=== PATIENT | male | born 1970 | race Caucasian/White ===

== ENCOUNTER 2016-07-15 05:35 | Inpatient (IN) | payer OTHER ==
--- NOTE | 2016-06-25 09:14 | PAT Medication Instructions ---
Service Date Jun 25, 2016. Current Home Medication List Fluoxetine (Prozac), 40 MG PO QAM Meclizine Hcl (Meclizine Hcl), 1 TAB PO TID PRN for RN Multivitamin (Multivitamin), 1 TAB PO QAM Naproxen (Aleve), 880 MG PO PRN Medication Instructions For Your Scheduled Surgery Meclizine Hcl (Meclizine Hcl), 1 TAB PO TID PRN for RN (not taking currently) Naproxen (Aleve), 880 MG PO PRN (check with Dr. Tee's office for instructions ) - Hold the following medications the morning of surgery: Multivitamin (Multivitamin), 1 TAB PO QAM - Take the following medications the morning of surgery with a sip of water: Fluoxetine (Prozac), 40 MG PO QAM If you have any questions please call us at [phone] or [phone] ( [place]) or [phone]
[2016-06-25 10:14] LABS: BASO % 0.2 %; BASO ABS # 0.01 K/uL (0-0.2); COMPLETE YES; EOS % 5.9 %; IG% 0.3 %; LYMPH % 24.6 %; LYMPH ABS # 1.43 K/uL (1.2-3.4); MEAN CELL VOLUME 84.9 fL (80-100); MEAN CORPUSCULAR HEMOGLOBIN 28.8 pg (25-34); MEAN CORPUSCULAR HGB CONC 33.9 g/dl (32-36); MEAN PLATELET VOLUME 10.4 fL (7.4-10.4); PLATELET COUNT 212 K/uL (130-400); RED BLOOD COUNT 4.83 M/uL (4.7-6.1); WHITE BLOOD COUNT 5.81 K/uL (4.8-10.8)
[2016-06-25 10:15] LABS: URINE APPEARANCE CLEAR (CLEAR); URINE BILIRUBIN NEG (NEG); URINE COLOR DK YELLOW; URINE NITRITE NEG (NEG); URINE SPECIFIC GRAVITY 1.034 (1.000-1.030); UROBILINOGEN NEG (NEG)
[2016-06-25 10:29] LABS: MANUAL MICROSCOPIC REQUIRED? NO; REVIEW REQ? NO
[2016-06-25 10:38] LABS: BUN/CREATININE RATIO 31.1 (10-20); CALCIUM 9.2 mg/dl (8.5-10.1); CREATININE 0.71 mg/dl (0.60-1.40); POTASSIUM 4.1 mmol/L (3.5-5.1)
--- NOTE | 2016-07-14 21:14 | HISTORY & PHYSICAL EXAMINATION ---
DATE OF ADMISSION: 07/15/2016 He is being preoped for lumbar spine surgery, posterior lumbar interbody fusion at L4-L5. His major complaint is back and lower extremity difficulty, weakness, inability to stand, walk, ambulate, numbness, tingling and weakness of 6 to 9 months in duration. ALLERGIES: PENICILLIN. MEDICATIONS: Ibuprofen, hydrocodone. HISTORY OF PRESENT ILLNESS: Daniel has a working diagnosis of significant spondylolisthesis grade 2, significant stenosis and instability of the spine. MEDICAL HISTORY: Positive for depression, usual childhood diseases. SURGICAL HISTORY: Two cervical spine surgeries in 2004 and 2009. FAMILY HISTORY: Heart disease. SOCIAL HISTORY: He is , 3 children. Rarely drinks. No tobacco. Active lifestyle. 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 REVIEW OF SYSTEMS: Positive for headaches. Ear, nose and throat negative. Denies chest pain, palpitation. No asthma, wheezing. No nausea, vomiting. No urgency or frequency. Positive for sleep issues. Skin rashes and lesions negative. Numbness, tingling and weakness. He has no diabetes. He has bruisability, or immunodeficiency. PHYSICAL EXAMINATION: VITAL SIGNS: He is 5 feet 7 inches, 195 pounds, blood pressure 130/80, pulse of 80, respiratory rate 16 and temperature 97.4. HEENT: Pupils reactive to light and accommodation. Ear, nose and throat clear. CARDIAC: Normal S1, S2. No S3. LUNGS: Clear to auscultation. No rales, rhonchi or wheezing. ABDOMEN: Soft, nontender, bowel sounds present. MUSCULOSKELETAL: He has decreased range of motion, pain with flexion and extension of his spine. Pain with percussion of spine. He has weakness with dorsiflexion and plantar flexion. NEUROLOGIC: He has slight numbness and tingling as well. He has slight gait abnormality. Images demonstrated spondylolisthesis of the spine L4-L5. IMPRESSION: Spondylolisthesis, lumbar spine. DISPOSITION: Includes decompression, laminectomy and a procedure L4-L5 under general anesthetic at [facility] on 07/15/2016. IMPRESSION: Foot end. MTDD
[2016-07-15] VITALS (9 sets, daily range): BP systolic 91–143; BP diastolic 60–92; PULSE 72–85; TEMP 36.5–37.1; O2SAT 93–98; Ht 170.2 cm; Wt 87.5 kg
[~2016-07-15] VITALS: Ht 170.2 cm; Wt 87.5 kg
[~2016-07-15 05:35] MED LIST: FLUO40CA8 PO; MECL1TAB42 PO; MULT-506 PO; NAPR1TAB9 PO
[2016-07-15] MEDS ORDERED: SODIUM CHLORIDE 0.9% 1000ML 1,000 ML IV SCH ×2 (06:00→10:25)
[2016-07-15] MEDS ORDERED: CLINDAMYCIN 600 MG/54 ML D5W IV SCH (06:00)
[2016-07-15] MEDS ORDERED: SCOPOLAMINE 1.5 MG TDSY TD SCH (06:00)
[2016-07-15] MEDS ORDERED: ROCURONIUM BROMIDE 10 MG/ML 5 ML VIAL ONE ×2 (06:16→08:31)
[2016-07-15] MEDS ORDERED: ONDANSETRON INJ 2 MG/ML 2 ML VIAL ONE (06:16)
[2016-07-15] MEDS ORDERED: LIDOCAINE HCL 2% 2 ML VIAL (20MG/ML) ONE (06:16)
[2016-07-15] MEDS ORDERED: GLYCOPYRROLATE INJ 0.2 MG/ML VIAL ONE (06:16)
[2016-07-15] MEDS ORDERED: MIDAZOLAM HCL 1 MG/ML 2ML VIAL ONE (06:16)
[2016-07-15] MEDS ORDERED: PROPOFOL IV EMULSION 10 MG/ML 20 ML VIAL IV ONE (06:16)
[2016-07-15] MEDS ORDERED: DEXAMETHASONE SOD INJ 4 MG/ML VIAL ONE (06:16)
[2016-07-15] MEDS ORDERED: NEOSTIGMINE METHYLSULFATE 5 MG/5 ML SYR ONE (06:16)
[2016-07-15] MEDS ORDERED: FENTANYL CITRATE INJ 50 MCG/1 ML 2 ML VIAL ONE (06:16)
--- NOTE | 2016-07-15 07:21 | History & Physical Bridge Note ---
H&P Re-Evaluation Bridge Note: I have examined the patient, reviewed the History & Physical and in the interval since the performance of the History & Physical I have noted the following changes of clinical significance: No changes noted
[2016-07-15] MEDS ORDERED: HYDROmorphone INJ 1 MG/ML SYR IV PRN (08:00)
[2016-07-15] MEDS ORDERED: PROMETHAZINE HCL INJ 6.25 MG in SODIUM CHLORIDE 0.9% 50ML 50 ML IV PRN (08:00)
[2016-07-15] MEDS ORDERED: FENTANYL CITRATE INJ 50 MCG/1 ML 2 ML VIAL IV PRN (08:00)
[2016-07-15] MEDS ORDERED: ATROPINE SULFATE 0.1 MG/ML 5ML SYR IV PRN (08:00)
[2016-07-15] MEDS ORDERED: EpHEDrine SULFATE INJ 50 MG/ML AMP IV PRN (08:00)
[2016-07-15] MEDS ORDERED: ONDANSETRON INJ 2 MG/ML 2 ML VIAL IV PRN ×2 (08:00→10:30)
[2016-07-15] MEDS ORDERED: EpHEDrine SULFATE 50MG/5ML SYR ONE (08:16)
[2016-07-15] MEDS ORDERED: VANCOMYCIN HCL 1000MG/20ML VIAL TOP ONE (09:49)
[2016-07-15] MEDS ORDERED: BUPIVACAINE/EPINEPHRINE 0.5% MPF 1:200,000 30 ML VIAL INJ ONE (09:49)
[2016-07-15] MEDS ORDERED: GELATIN SPONGE SZ 100 TOP ONE (09:49)
[2016-07-15] MEDS ORDERED: BACITRACIN 50000 UNIT VIAL IR ONE (09:49)
[2016-07-15] MEDS ORDERED: THROMBIN FOR SOLN 20000 UNIT KIT TOP ONE (09:49)
--- NOTE | 2016-07-15 09:49 | DIAGNOSTIC IMAGING REPORT ---
LUMBAR SPINE, INTRAOPERATIVE FLUOROSCOPY HISTORY: L4-L5 decompression and fusion. FLUOROSCOPY TIME: 5 seconds. FINDINGS: Intraoperative fluoroscopy was provided for the lumbar spine. A single fluoroscopic spot image. Posterior decompression and fusion at L4-L5 with pedicle screws and rods. The hardware appears intact. IMPRESSION: Fluoroscopy provided for a L4-5 posterior decompression and fusion. Electronically signed by: Yoni Biggs M.D. 07/15/2016 9:47 AM
--- NOTE | 2016-07-15 10:29 | [facility] Post Operative Brief Note ---
Immediate Operative Summary Operative Date Jul 15, 2016. Pre-Operative Diagnosis Spondylolisthesis, lumbar spine Post-Operative Diagnosis Spondylolisthesis, lumbar spine Procedure(s) Performed L4-L5 Posterior Lumbar Interbody Fusion Surgeon Dr. Daniel Tee Director Of Reimbursement Surgeon(s) Dale Marks PA-C Estimated Blood Loss 200ML Findings spondy and stenosis Specimens None per surgeon Complication(s) None Disposition Recovery Room / PACU
[2016-07-15] MEDS ORDERED: PROMETHAZINE HCL INJ 12.5 MG in SODIUM CHLORIDE 0.9% 50ML 50 ML IV PRN (10:30)
[2016-07-15] MEDS ORDERED: LORAZEPAM 1 MG TAB PO PRN (10:30)
[2016-07-15] MEDS ORDERED: METOCLOPRAMIDE HCL INJ 5 MG/ML 2 ML VIAL IV PRN (10:30)
[2016-07-15] MEDS ORDERED: MECLIZINE HCL 12.5 MG TAB PO PRN (10:30)
[2016-07-15] MEDS ORDERED: MAGNESIUM HYDROXIDE SUSP 30 ML UDC PO PRN (10:30)
[2016-07-15] MEDS ORDERED: LORAZEPAM INJ 1 MG in SYRINGE 0 ML IV PRN (10:30)
[2016-07-15] MEDS ORDERED: NALOXONE HCL 0.4 MG/1 ML VIAL/CARP IV PRN (10:30)
[2016-07-15] MEDS ORDERED: ACETAMINOPHEN 325 MG TAB PO PRN (10:30)
[2016-07-15] MEDS ORDERED: HYDROmorphone HCL 0.5MG/ML 50 ML CASSETTE ONE (10:34)
--- NOTE | 2016-07-15 11:00 | Anesthesiology Progress Note ---
Anesthesia Post Op Note Date & Time Jul 15, 2016 at 10:59 Vital Signs Pain Intensity: 2 Vital Signs Past 12 Hours Date Time Temp Pulse Resp B/P Pulse Ox O2 Delivery O2 Flow Rate FiO2 07/15/16 10:57 36.5 07/15/16 10:53 119/68 07/15/16 10:51 76 20 07/15/16 10:51 76 20 100 07/15/16 10:48 115/67 07/15/16 10:46 79 22 100 07/15/16 10:46 80 22 07/15/16 10:43 120/62 07/15/16 10:41 86 20 100 07/15/16 10:41 86 20 07/15/16 10:40 Nasal Cannula 3 07/15/16 10:38 125/63 07/15/16 10:36 86 20 100 07/15/16 10:36 86 20 07/15/16 10:33 128/61 07/15/16 10:31 89 07/15/16 10:31 89 16 100 07/15/16 10:28 124/66 07/15/16 10:26 99 07/15/16 10:26 99 119/70 96 07/15/16 10:21 36.3 99 16 119/70 96 Mask 10 07/15/16 05:58 37.1 78 20 143/92 98 Room Air Notes Mental Status: alert / awake / arousable, participated in evaluation Pt Amnestic to Procedure: Yes Nausea / Vomiting: adequately controlled Pain: adequately controlled Airway Patency, RR, SpO2: stable & adequate BP & HR: stable & adequate Hydration State: stable & adequate Anesthetic Complications: no major complications apparent
[2016-07-15] MEDS: HYDROmorphone HCL 0.5MG/ML 50 ML CASSETTE IV PRN ×2 (11:12→18:55)
--- NOTE | 2016-07-15 11:45 | OPERATIVE REPORT ---
DATE OF OPERATION: 07/15/2016 PREOPERATIVE DIAGNOSIS: Spondylolisthesis, lumbar spine, grade 2. POSTOPERATIVE DIAGNOSIS: Same. PROCEDURE: Include a laminectomy 4-5 lumbar spine. Posterior lumbar interbody fusion. Pedicle screw instrumentation and complete discectomy 4-5. SURGEON: Dr. Tee. SHEARING SHED WORKER: Dale Marks PA-C. COMPLICATIONS: Zero. BLOOD LOSS: 200. DESCRIPTION OF PROCEDURE: The patient was taken to the operating room and general intubated anesthetic provided to the patient, placed prone, shaved, scrubbed, prepped and draped sterile. We made a skin incision from 4-5 dissecting the soft tissue. We came right out of the transverse processes. We decompressed the neural elements in great detail, which will be the 4 and 5 nerve roots bilaterally. I was pleased with the decompression. We then instrumented spine safely getting pedicle screws at 4 and 5 bilaterally with the [employer] using anatomic landmarks and C-arm guidance. We then did a complete discectomy left side, right-side, evacuating essentially the entire disc at 4-5. This was replaced by interbody devices, PEEK interbody cages at L4-5. They were 11 mm in height, 10 mm in width, 26 mm in length. They were placed into the vacated discectomy. We locked down the construct, closed in layers bone grafted out over the transverse processes to complete the 360 fusion, 3-0 nylon on the skin, sterile dressing applied. The patient returned to PACU stable. No complications. Sponge and needle count correct. IMPLANTS USED: [employer]. I attest to the content of the Intraoperative Record and any orders documented therein. Any exceptio ns are noted below.
[2016-07-15] MEDS: KETOROLAC TROMETHAMINE 30 MG/ML VIAL IV SCH ×3 (11:54→23:24)
[2016-07-15] MEDS ORDERED: NURSING VERBAL MED ORDER ONE (14:30)
[2016-07-15] MEDS: SODIUM CHLORIDE 0.9% 1000ML 1,000 ML IV SCH (14:36)
[2016-07-15] MEDS: CLINDAMYCIN IV 600 MG in DEXTROSE 5% ADD-VANTAGE 50ML 50 ML IV SCH ×2 (15:31→23:23)
[2016-07-16] MEDS: SODIUM CHLORIDE 0.9% 1000ML 1,000 ML IV SCH (02:59)
[2016-07-16 03:15] VITALS: BP 106/65; PULSE 69; TEMP 36.5; O2SAT 97
[2016-07-16] MEDS: KETOROLAC TROMETHAMINE 30 MG/ML VIAL IV SCH ×2 (05:48→11:16)
[2016-07-16] MEDS ORDERED: DC PCA ONE (06:00)
[2016-07-16] MEDS ORDERED: BISACODYL 10 MG SUPP PR PRN (06:00)
[2016-07-16] MEDS ORDERED: BISACODYL 5 MG TABEC PO PRN (06:00)
[2016-07-16] MEDS ORDERED: HYDROmorphone INJ 1 MG/ML SYR IV PRN (06:00)
[2016-07-16] MEDS ORDERED: OXYCODONE/ACETAMINOPHEN 5-325 TAB PO PRN (06:00)
[2016-07-16] MEDS ORDERED: HYDROmorphone INJ 2 MG/ML SYR/VIAL IV PRN (06:00)
[2016-07-16] MEDS ORDERED: NURSING VERBAL MED ORDER ONE (06:30)
[2016-07-16 07:19] VITALS: BP 98/61; PULSE 61; TEMP 36.5; O2SAT 99
[2016-07-16] MEDS: FLUOXETINE HCL 20 MG CAP PO SCH (08:03)
[2016-07-16] MEDS: POLYETHYLENE (MIRALAX) 17 GM PACK PO SCH (08:03)
[2016-07-16] MEDS: MULTIVITAMIN TAB PO SCH (08:03)
--- NOTE | 2016-07-16 08:06 | Anesthesiology Progress Note ---
Anesthesia Post Op Note Date & Time Jul 16, 2016 at 08:05 Vital Signs Vital Signs Past 12 Hours Date Time Temp Pulse Resp B/P Pulse Ox O2 Delivery O2 Flow Rate FiO2 07/16/16 07:34 Room Air 07/16/16 07:19 36.5 61 16 98/61 99 Room Air 07/16/16 03:15 36.5 69 16 106/65 97 Room Air 07/15/16 23:15 36.5 76 16 103/63 94 Room Air Notes Mental Status: alert / awake / arousable, participated in evaluation Pt Amnestic to Procedure: Yes Nausea / Vomiting: adequately controlled Pain: adequately controlled Airway Patency, RR, SpO2: stable & adequate BP & HR: stable & adequate Hydration State: stable & adequate Anesthetic Complications: no major complications apparent
[2016-07-16] MEDS: OXYCODONE/ACETAMINOPHEN 5-325 TAB PO PRN ×3 (08:08→22:37)
--- NOTE | 2016-07-16 09:11 | PROGRESS NOTE ---
DATE: 07/16/2016 DATE: 07/16/2016. SUBJECTIVE: Still some lower extremity paresthesias. No true pain. Lumbar spine gives him some difficulty as well, but not incapacitating. He is alert, oriented. OBJECTIVE: Vital signs stable, alert, oriented, wound protected. Neurologically intact. ASSESSMENT: Status post lumbar spine decompression and fusion L4-L5. DISPOSITION: Includes instructions, precautions, education, up with therapy today, tentative discharge home tomorrow with home care.
[2016-07-16 10:42] VITALS: BP 130/67; PULSE 67; O2SAT 96
[2016-07-16 10:50] VITALS: BP 93/59; PULSE 62; TEMP 36.7; O2SAT 95
[2016-07-16 15:31] VITALS: BP 116/75; PULSE 58; TEMP 36.7; O2SAT 97
[2016-07-16 23:00] VITALS: BP 106/68; PULSE 75; TEMP 36.9; O2SAT 96
[2016-07-17] MEDS: OXYCODONE/ACETAMINOPHEN 5-325 TAB PO PRN (07:12)
--- NOTE | 2016-07-17 07:37 | DISCHARGE SUMMARY ---
SUBJECTIVE: Minimal complaints of pain. He has some stiffness and soreness. No radicular pain. No fevers, sweats, chills. No confusion. No chest pain, shortness of breath. OBJECTIVE: Hematocrit 41.0. Moves all four extremities. Alert, oriented. No edema. ASSESSMENT: Status post lumbar fusion. DISPOSITION: Discharge home today in improved stable condition. Instructions, precautions, education provided to the patient. Dressings changed about every 24-48 hours. He may shower in 3-5 days. Instructions, precautions given to him here and in the office. He has a prescription at home for medication for pain. He also has a prescription on his chart for a rolling walker only if needed. Followup examination in 10-14 days.
[2016-07-17 07:55] VITALS: BP 120/60; PULSE 68; TEMP 37; O2SAT 96
[2016-07-17] MEDS: MULTIVITAMIN TAB PO SCH (09:24)
[2016-07-17] MEDS: FLUOXETINE HCL 20 MG CAP PO SCH (09:24)
[2016-07-17] MEDS: POLYETHYLENE (MIRALAX) 17 GM PACK PO SCH (09:25)
[2016-07-17 11:33] VITALS: BP 120/60; PULSE 68; TEMP 37; O2SAT 96
== END 2016-07-17 12:35 | disposition home or self-care (01) | DRG 460 ==
LOC: ENRESERVDT → ENRESERVTM → C.ACU 05:35 → C.3E 10:31
PROVIDERS: ADMIT Orthopaedic Surgery Orthopaedic Surgery of the Spine; ATTEND Orthopaedic Surgery Orthopaedic Surgery of the Spine
PROC: 0ST20ZZ Resection of Lumbar Vertebral Disc, Open Approach (ICD-10-PCS; principal; 2016-07-15 07:30)
PROC: 0SG00AJ Fusion of Lumbar Vertebral Joint with Interbody Fusion Device, Posterior Approach, Anterior Column, Open Approach (ICD-10-PCS; principal; 2016-07-15 07:30)
DX: M43.16 Spondylolisthesis, lumbar region (principal); F32.9 Major depressive disorder, single episode, unspecified; G47.30 Sleep apnea, unspecified; R20.0 Anesthesia of skin; M54.2 Cervicalgia; M54.10 Radiculopathy, site unspecified; E66.9 Obesity, unspecified; Z68.30 Body mass index [BMI] 30.0-30.9, adult; Z79.899 Other long term (current) drug therapy; Z79.1 Long term (current) use of non-steroidal anti-inflammatories (NSAID); Z79.891 Long term (current) use of opiate analgesic

== ENCOUNTER → 2016-10-02 | Outpatient (CLI) | payer OTHER ==
--- NOTE | 2016-10-02 12:16 | DIAGNOSTIC IMAGING REPORT ---
RIGHT HIP INJECTION UNDER FLUOROSCOPIC GUIDANCE CLINICAL HISTORY: Degenerative joint disease. Steroid injection. PROCEDURE: The risks, benefits, and alternatives to the procedure were discussed with the patient. Written informed consent was obtained. The patient was placed supine on the fluoroscopy table, and a right hip injection was performed under fluoroscopic guidance. The area was prepped and draped in the usual sterile fashion. The skin and soft tissues anesthetized with local 1% lidocaine. The right hip joint was accessed utilizing a 22-gauge needle, and intra-articular positioning was confirmed by injecting a small volume of Optiray 300. The prescribed dosage of 2 cc of betamethasone and 8 cc of 0.5% bupivacaine was then injected into the joint space. The procedure was well tolerated and without immediate complication. The patient left the department in satisfactory condition. FLUOROSCOPY TIME: 18 seconds. IMPRESSION: Unremarkable steroid injection of the right hip under fluoroscopic guidance. Electronically signed by: Manuel Rachel M.D. 10/02/2016 12:14 PM Dictated Date/Time: 10/02/2016 12:12 PM
== END | disposition home or self-care (01) ==
LOC: C.RADBC 10:43
PROVIDERS: ATTEND Orthopaedic Surgery
DX: M17.11 Unilateral primary osteoarthritis, right knee (principal)

== ENCOUNTER → 2017-03-14 | Outpatient (CLI) | payer OTHER ==
--- NOTE | 2017-03-14 14:38 | DIAGNOSTIC IMAGING REPORT ---
RIGHT INJ MAJOR JNT SHLDR,HIP,KNEE CLINICAL HISTORY: 47 years-old Male presenting with RT HIP DJD Right. COMPARISON: 10/02/2016. PROCEDURE: The risks, benefits, and alternatives to the procedure were discussed with the patient. Written informed consent was obtained. The patient was placed supine on the fluoroscopy table, and a right hip injection was performed under fluoroscopic guidance. The area was prepped and draped in the usual sterile fashion. The skin and soft tissues anesthetized with local 1% lidocaine. The right hip joint was accessed utilizing a 22-gauge needle, and 1 cc of Optiray 300 was injected to confirm intra-articular location. Subsequently, a 10 mL mixture of 2 mL of betamethasone and 8 mL of 0.5% bupivacaine was injected into the joint space under fluoroscopic guidance. The procedure was well tolerated and without immediate complication. Fluoroscopy dosage (mGy): Not available. Fluoroscopy time: 14 seconds. Number of fluoroscopic spot images: 0. IMPRESSION: Successful injection of the right hip under fluoroscopic guidance. Electronically signed by: Skyler Sewell M.D. 03/14/2017 2:36 PM Dictated Date/Time: 03/14/2017 2:34 PM
== END | disposition home or self-care (01) ==
PROVIDERS: ATTEND Orthopaedic Surgery
DX: M16.11 Unilateral primary osteoarthritis, right hip (principal)

== ENCOUNTER 2017-08-12 04:58 | Inpatient (IN) | payer OTHER ==
[2017-07-28 08:08] VITALS: BMI 31.0
--- NOTE | 2017-07-28 08:41 | PAT Medication Instructions ---
Service Date Jul 28, 2017. Current Home Medication List Acetaminophen (Apap), 1 TAB PO QD PRN for Pain Fluoxetine (Prozac), 40 MG PO QAM Meclizine Hcl (Meclizine Hcl), 1 TAB PO TID PRN for RN Multivitamin (Multivitamin), 1 TAB PO QAM Medication Instructions For Your Scheduled Surgery - Hold the following medications the morning of surgery: Multivitamin (Multivitamin), 1 TAB PO QAM - Take the following medications the morning of surgery with a sip of water: Fluoxetine (Prozac), 40 MG PO QAM Meclizine Hcl (Meclizine Hcl), 1 TAB PO TID PRN for RN (if needed) Acetaminophen (Apap), 1 TAB PO QD PRN for Pain (okay to take up to 4 hours prior to surgery if needed) - Take the following medications as scheduled the night before surgery: Meclizine Hcl (Meclizine Hcl), 1 TAB PO TID PRN for RN (if needed) Acetaminophen (Apap), 1 TAB PO QD PRN for Pain (if needed) If you have any questions please call us at [phone] or [phone] or [phone]
--- NOTE | 2017-07-28 09:30 | DIAGNOSTIC IMAGING REPORT ---
CHEST 2 VIEWS ROUTINE HISTORY: 47 years-old Male PAT preoperative exam. No acute chest complaints COMPARISON: None available TECHNIQUE: PA and lateral views of the chest FINDINGS: There is an indeterminate square opaque structure measuring up to 1.4 cm overlying C7 which may reflect orthopedic hardware. Cardiomediastinal and hilar silhouettes are within normal limits. No pneumothorax, pleural effusion or overt pulmonary edema. Linear subsegmental right perihilar opacity is noted. The bones of the chest appear grossly intact. Multilevel endplate spurring of the spine. Moderate degenerative changes of the left AC joint. IMPRESSION: Linear subsegmental right perihilar opacity suggests area of scarring or atelectasis. The chest is otherwise clear. The above report was generated using voice recognition software. It may contain grammatical, syntax or spelling errors. Electronically signed by: Kody Boston M.D. 07/28/2017 9:29 AM Dictated Date/Time: 07/28/2017 9:26 AM
[2017-07-28 09:46] LABS: BASO % 0.1 %; BASO ABS # 0.01 K/uL (0-0.2); EOS ABS # 0.27 K/uL (0-0.5); HEMATOCRIT 45.2 % (42-52); HEMOGLOBIN 15.2 g/dL (14.0-18.0); IG# 0.05 K/uL (0.00-0.02); LYMPH % 22.1 %; MEAN CELL VOLUME 85.4 fL (80-100); MEAN CORPUSCULAR HEMOGLOBIN 28.7 pg (25-34); MEAN CORPUSCULAR HGB CONC 33.6 g/dl (32-36); MEAN PLATELET VOLUME 10.1 fL (7.4-10.4); MONO % 13.2 %; NEUT % 59.9 %; NEUT ABS # 4.07 K/uL (1.4-6.5); PLATELET COUNT 218 K/uL (130-400); RED CELL DISTRIBUTION WIDTH CV 14.5 % (11.5-14.5); RED CELL DISTRIBUTION WIDTH SD 45.5 fL (36.4-46.3)
[2017-07-28 09:56] LABS: PTT PATIENT 26.7 SECONDS (21.0-31.0)
[2017-07-28 09:59] LABS: CREATININE 0.85 mg/dl (0.60-1.40)
--- NOTE | 2017-08-09 11:06 | HISTORY & PHYSICAL EXAMINATION ---
DATE OF ADMISSION: 08/12/2017 CHIEF COMPLAINT: Right hip pain. 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 Lee for a surgical treatment of his right hip. He has got a 3-year history of increasing right hip pain and discomfort. He describes it has gotten worse over time. He is being treated with oral medicines as well as injections. He had 2 intraarticular hip joint injection. The first one helped for about 3 months and last one helped much shorter. He describes groin pain and thigh pain. He limps the day goes on. It has become more debilitating. He has difficulty putting his shoes and socks on. He would like to have his right hip replaced. PAST MEDICAL HISTORY: Significant for, 1. Sleep apnea. 2. Arm numbness from some neck cervical spondylosis and 2 fusions. 3. Lumbar spine disease. PAST SURGICAL HISTORY: 1. Include cervical fusion x2 one in 2004 and one in 2009 done in [place]. 2. L4-L5 back surgery done by Dr. Tee in July 2016. ALLERGIES: PENICILLIN. REACTIONS UNKNOWN. CURRENT MEDICINES: Include, 1. Fluoxetine 40 mg a day. 2. Meclizine 20 mg p.r.n. for vertigo. SOCIAL HISTORY: A 47-year-old male. 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 Fairly active. REVIEW OF SYSTEMS: Negative for diabetes, heart disease, or blood clots. REVIEW OF SYSTEMS: Negative for diabetes, neurologic problems, vascular problems, or bleeding disorders. Denies any chest pain. No shortness of breath. No history of DVT or PE. PHYSICAL EXAMINATION: GENERAL: Physical examination reveals a healthy, pleasant, middle-aged male. He looks to be in good health. HEENT: Benign. NECK: Supple. No lymphadenopathy. LUNGS: Clear to auscultation. HEART: Regular rate and rhythm. ABDOMEN: Soft, nontender, and nondistended. EXTREMITIES: Grossly neurovascularly intact except as follows. Examination of the right hip reveals the patient walks with a bit of an antalgic gait. He is about 0.5 cm short on the right side compared to left. He has got very stiff hip with internal rotation to neutral at best. External rotation 20 degrees. He has got pain with internal rotation that recreates his pain. No knee effusion. X-RAYS: X-rays of the right hip were reviewed. It shows advanced right hip DJD. He has got complete loss of his joint space. He has got osteophytes around the femoral head and acetabulum. ASSESSMENT: A 47-year-old male with a history of multiple spine surgeries in the past with advanced right hip degenerative joint disease. He has failed conservative treatment. Undoubtedly, some of his pain is coming from his back, but I think that the significant is coming from his hip. He has failed conservative treatment and would like to have his right hip replaced. PLAN: We will take him to the operating room and do a right total hip replacement. The risks and benefits of this procedure were explained to the patient including, but not limited to DVT, PE, , infection, neurological injury, vascular injury, bleeding problem, pain, limited range of motion, stiffness, failure to relieve his symptoms, incomplete relief of symptoms, need for further surgery in the future, fracture, leg length inequality, nerve palsy, persistent pain, etc. The patient understands and desires to proceed. Informed consent was obtained. I did tell him that it is going to fix his underlying back issues and he is aware that. As far as his discharge planing, he is planning to be discharged to home with his family's assistance.
[~2017-08-12] VITALS: Ht 170.2 cm; Wt 90.0 kg
[2017-08-12] VITALS (8 sets, daily range): BP systolic 99–125; BP diastolic 60–78; PULSE 60–87; TEMP 36.5–37.2; O2SAT 91–100; Ht 170.2 cm; Wt 90.0 kg
[~2017-08-12 04:58] MED LIST changes: +ACET325T82 PO; +BUPR150T6 PO; -NAPR1TAB9 PO
[2017-08-12] MEDS ORDERED: ACETAMINOPHEN 500 MG TAB PO SCH (06:00)
[2017-08-12] MEDS ORDERED: METOCLOPRAMIDE HCL 10 MG TAB PO SCH (06:00)
[2017-08-12] MEDS ORDERED: TRANEXAMIC ACID INJ 1,000 MG in SYRINGE 0 ML IV SCH (06:00)
[2017-08-12] MEDS ORDERED: SCOPOLAMINE 1.5 MG TDSY TD SCH (06:00)
[2017-08-12] MEDS ORDERED: FAMOTIDINE 20 MG TAB PO SCH (06:00)
[2017-08-12] MEDS ORDERED: CEFAZOLIN 2000MG IV PUSH 10 ML IV SCH (06:00)
[2017-08-12] MEDS ORDERED: GABAPENTIN 300 MG CAP PO SCH (06:00)
[2017-08-12] MEDS ORDERED: LACTATED RINGER'S 1000ML IV SCH (06:15)
[2017-08-12] MEDS ORDERED: LACTATED RINGER'S 1000ML 500 ML IV SCH (06:15)
[2017-08-12] MEDS ORDERED: LACTATED RINGER'S 1000ML 1,000 ML IV SCH (06:15)
[2017-08-12] MEDS ORDERED: BACITRACIN 50000 UNIT VIAL ONE (06:25)
[2017-08-12] MEDS ORDERED: BUPIVACAINE/EPINEPHRINE 0.5% MPF 1:200,000 30 ML VIAL ONE (06:25)
[2017-08-12] MEDS ORDERED: BUPIVACAINE 0.5 % 5 MG/1 ML PF 10ML VIAL ONE (06:26)
[2017-08-12] MEDS ORDERED: MIDAZOLAM HCL 1 MG/ML 2ML VIAL ONE (06:47)
[2017-08-12] MEDS ORDERED: KETAMINE HCL INJ 50 MG/ML 10 ML VIAL ONE (07:18)
[2017-08-12] MEDS ORDERED: DiphenhydrAMINE HCL 50 MG/ML VIAL ONE (07:31)
[2017-08-12] MEDS ORDERED: LIDOCAINE HCL 2% 2 ML VIAL (20MG/ML) ONE (07:31)
[2017-08-12] MEDS ORDERED: PROPOFOL IV EMULSION 10 MG/ML 20 ML VIAL IV ONE ×2 (07:31→07:50)
[2017-08-12] MEDS ORDERED: SODIUM CHLORIDE 0.9% INJ 10 ML VIAL ONE (07:31)
[2017-08-12] MEDS ORDERED: EpHEDrine SULFATE 50MG/5ML SYR ONE (07:43)
[2017-08-12] MEDS ORDERED: PHENYLEPHRINE 100MCG/ML 5ML SYR ONE (07:43)
[2017-08-12] MEDS ORDERED: PHENYLEPHRINE HCL INJ 10 MG/ML VIAL ONE (07:50)
[2017-08-12] MEDS ORDERED: ONDANSETRON INJ 2 MG/ML 2 ML VIAL IV PRN ×3 (08:00→08:45)
[2017-08-12] MEDS ORDERED: PHENYLEPHRINE 100MCG/ML 5ML SYR IV PRN ×2 (08:00)
[2017-08-12] MEDS ORDERED: ATROPINE SULFATE 0.1 MG/ML 5ML SYR IV PRN ×2 (08:00)
[2017-08-12] MEDS ORDERED: EpHEDrine SULFATE INJ 50 MG/ML AMP IV PRN ×2 (08:00)
[2017-08-12] MEDS ORDERED: HYDROmorphone INJ 2 MG/ML SYR/VIAL IV PRN ×2 (08:00)
--- NOTE | 2017-08-12 08:35 | [facility] Post Operative Brief Note ---
Immediate Operative Summary Operative Date Aug 12, 2017. Pre-Operative Diagnosis Right Hip Degenerative Joint Disease Post-Operative Diagnosis Same as preop Procedure(s) Performed Right Total Hip Arthroplasty Uncemented Surgeon Dr. Vasquez [employer] Coordinator Surgeon(s) Doroteo Avlaos PA-C Estimated Blood Loss 300 ml Findings Consistent with Post-Op Diagnosis Fluids (cc crystalloids) 2000 cc Specimens A. Right Femoral Head Drains None Anesthesia Type Spinal MAC Complication(s) none Disposition Accompanied Pt To Recover: yes Disposition: Recovery Room / PACU
[2017-08-12] MEDS ORDERED: CEFAZOLIN IV 2,000 MG in DEXTROSE 5% 50ML 50 ML IV SCH (08:45)
[2017-08-12] MEDS ORDERED: BISACODYL 10 MG SUPP PR PRN (08:45)
[2017-08-12] MEDS ORDERED: SILVER SULFADIAZINE 1% CR 50 GM JAR EXT PRN (08:45)
[2017-08-12] MEDS ORDERED: MECLIZINE HCL 12.5 MG TAB PO PRN (08:45)
[2017-08-12] MEDS ORDERED: METOCLOPRAMIDE HCL INJ 5 MG/ML 2 ML VIAL IV PRN (08:45)
[2017-08-12] MEDS ORDERED: ZOLPIDEM TARTRATE 5 MG TAB PO PRN (08:45)
[2017-08-12] MEDS ORDERED: TAMSULOSIN HCL 0.4 MG CAP PO PRN (08:45)
[2017-08-12] MEDS ORDERED: ALUMINUM/MAGNESIUM/SIMETH (MAALOX MAX) 30 ML UDC PO PRN (08:45)
[2017-08-12] MEDS ORDERED: DiphenhydrAMINE HCL 50 MG/ML VIAL IV PRN (08:45)
[2017-08-12] MEDS ORDERED: MAGNESIUM HYDROXIDE SUSP 30 ML UDC PO PRN (08:45)
[2017-08-12] MEDS ORDERED: MoRPHine SULFATE 2 MG/ML CARP IV PRN (08:45)
[2017-08-12] MEDS ORDERED: OXYCODONE HCL IR 5 MG TAB (IMMEDIATE RELEASE) PO PRN (08:45)
[2017-08-12] MEDS: TAPENTADOL ER 50 MG TABCR PO SCH ×2 (09:00→20:54)
[2017-08-12] MEDS: DOCUSATE SODIUM 100 MG CAP PO SCH ×2 (09:00→20:54)
[2017-08-12] MEDS: MULTIVITAMIN TAB PO SCH (09:00)
[2017-08-12] MEDS ORDERED: MULTIVITAMIN TAB PO SCH (09:00)
--- NOTE | 2017-08-12 09:16 | DIAGNOSTIC IMAGING REPORT ---
R PELVIS/UNILATERAL HIP 1 VIEW CLINICAL HISTORY: Right hip degenerative arthritis. COMPARISON: Right hip radiographs January 07, 2018. FINDINGS: Alignment of the total right hip arthroplasty is anatomic. There is no periprosthetic fracture or unexpected radiopaque foreign body. 2 [address]ab[address] screws are in place. There are skin fei. IMPRESSION: Expected findings following total right hip arthroplasty. Electronically signed by: Chepe Rodriguez M.D. 08/12/2017 9:15 AM Dictated Date/Time: 08/12/2017 9:14 AM
--- NOTE | 2017-08-12 09:46 | OPERATIVE REPORT ---
DATE OF OPERATION: 08/12/2017 SURGEON: Hao Vasquez MD. COMPLIANCE ADVISOR: SABRA Julian. PREOPERATIVE DIAGNOSIS: Right hip degenerative joint disease. POSTOPERATIVE DIAGNOSIS: Same. PROCEDURE PERFORMED: Right ceramic on highly cross-linked polyethylene uncemented total hip arthroplasty. COMPLICATIONS: None. ESTIMATED BLOOD LOSS: 300 mL FLUID REPLACEMENT: 2000 mL crystalloid fluid replacement. ANESTHESIA: Spinal. DRAINS: None. SPECIMENS: Right femoral head sent for pathology. OPERATIVE INDICATIONS: The patient is a 47-year-old fairly active gentleman who has had a several-year history of increasing right hip pain and discomfort which has become unresponsive to conservative care. Continued to be limited by his pain and discomfort. He had 2 intraarticular hip joint injections, the first one helped significantly, last one was very short lasting. X-rays revealed advanced hip DJD. A very stiff hip. He elected to proceed with total hip arthroplasty. OPERATIVE FINDINGS: Operative findings revealed advanced right hip DJD. He had extensive grade 4 change of the femoral head and acetabulum. He had significant osteophytes around the acetabulum and large osteophytic femoral head as well as a moderate-sized joint effusion. Moderate size medial osteophyte. OPERATIVE IMPLANTS: Operative implants consisted of: 1. Biomet G7 size 56 mm acetabular shell. 2. 6.5 cancellous acetabular screws, 1 at 35 mm length and 1 at 30 mm length. 3. An apex hole eliminator. 4. Vitamin E enriched highly cross-linked polyethylene liner with a 56 mm outer diameter, 36 mm inner diameter with a terrell placed inferior and posterior. 5. DePuy size 13.5 small stature AML femoral stem. 6. A +5/36 mm ceramic articular ball. OPERATIVE PROCEDURE: The patient taken to the operating room, identified and placed on the operating table in supine position. All contact areas were appropriately padded. IV antibiotics were provided by anesthesia team. A spinal anesthetic had been implemented in the holding area. Swanson catheter was placed in sterile fashion. The patient was then placed in the left lateral decubitus position. An axillary roll was placed. A Stulberg hip positioner was used for positioning. All contact areas were meticulously padded and the right hip and leg were then prepped and draped in the usual sterile fashion. A posterolateral approach to the right hip was then performed through a curvilinear incision centered over the greater trochanter. Sharp dissection was carried out through the subcutaneous tissues down to the level of the IT band and gluteal fascia. The IT band and gluteal fascia were then incised longitudinally in line with the skin incision. The underlying greater trochanteric bursa was excised. The piriformis and external rotators were taken off the posterior aspect of the hip joint capsule. Great care was taken throughout the procedure to protect the sciatic nerve at all times. Posterior capsulotomy was then performed, leaving a large flap for later repair. Hip was internally rotated and dislocated. Femoral neck osteotomy cut was made with the final cut 15 mm above the lesser trochanter. Femoral head was removed and sent for pathology. Femur was retracted anteriorly. Attention was then drawn to the acetabulum. The acetabular labrum was excised. The pulvinar fat was excised. Sequential reaming of the acetabulum was then performed beginning with a size 45 and progressing up to a 55 reamer. I did enter the acetabulum with a 56, just opened up the opening. A 56 mm Biomet G7 acetabular shell was then placed in about 40 degrees of lateral opening and 20 degrees of anteversion. It was fixed with two 6.5 cancellous acetabular screws. A trial liner was placed. Some osteophytes were taken off anteriorly. Attention was then drawn to the femur. The proximal femur was entered with a cookie cutter, followed by canal finder and lateralizing reamer. Sequential reaming of the femur was then performed beginning with a size 10 and progressing up to a 13. We got excellent chatter at 13. Broach beginning with a size 10.5 small broach and progressing up to a 13.5 small. We got good fit with this and I did not think I could fit the large broach in. Calcar reamer was used to smoothen off the calcar. We then trialed the hip and the +5 articular ball provided full stability and full extension and external rotation and flexion to 90 degrees, internal rotation to [address] a lip very inferior and posterior to maximize his stability in flexion. Attention was then drawn toward placement of these implants. All trial implants were removed. An apex hole eliminator was placed. A highly cross-linked polyethylene liner with vitamin E enrichment and a terrell placed inferior and posterior were then placed. A 13.5 small stature AML femoral stem was placed. I did ream part way down the canal with 13 reamer. The 13.5 reamer was extremely tight on initial implantation. We still got over 5 cm scratch fit. The +5/36 mm ceramic articular ball was placed. Hip was located and once again found to be stable. Leg lengths appeared clinically equal. Attention was then drawn toward closing. The wound was irrigated with copious amounts of pulsatile lavage solution. I did inject locally with 60 mL of 0.5% Marcaine with epinephrine. The posterior capsule and external rotators were repaired through drill holes in the posterior trochanter with #2 Ti-Cron suture. The IT band and gluteal fascia were then closed with #1 PDS suture in running fashion. Subcutaneous tissues were closed with 2 layers with the deep layer with #1 Vicryl suture and subcutaneous tissues with 2-0 Dexon suture in a buried interrupted fashion. Skin was closed with skin fei. Leg was then cleaned and dried, and a sterile dressing of Xeroform, 4 x 4's, ABD pad and foam tape was applied. The patient then transferred to the recovery room in stable condition. The patient tolerated the procedure well with no complications. All needle and sponge counts were correct at the end of the operation. I attest to the content of the Intraoperative Record and any orders documented therein. Any exception s are noted below.
--- NOTE | 2017-08-12 10:11 | Anesthesiology Progress Note ---
Anesthesia Post Op Note Date & Time Aug 12, 2017 at 10:11 Vital Signs Pain Intensity: 0 Vital Signs Past 12 Hours Date Time Temp Pulse Resp B/P (MAP) Pulse Ox O2 Delivery O2 Flow Rate FiO2 08/12/17 09:45 36.5 71 18 104/67 (79) 98 Nasal Cannula 2.0 08/12/17 09:34 101/58 08/12/17 09:31 75 17 94 08/12/17 09:31 76 17 08/12/17 09:27 95/56 08/12/17 09:26 62 11 93/59 99 08/12/17 09:26 64 11 08/12/17 09:21 69 17 96 08/12/17 09:21 69 17 08/12/17 09:20 100/61 08/12/17 09:18 65 19 08/12/17 09:18 65 19 99 08/12/17 09:15 103/65 08/12/17 09:15 37.3 08/12/17 09:13 68 18 98 08/12/17 09:13 69 18 08/12/17 09:12 71 16 08/12/17 09:12 70 16 99 08/12/17 09:11 105/67 08/12/17 09:07 67 19 99 08/12/17 09:07 68 19 08/12/17 09:06 102/64 08/12/17 09:02 66 21 08/12/17 09:02 66 21 100 08/12/17 09:01 73 16 08/12/17 09:01 72 16 106/64 100 08/12/17 08:56 73 22 100 08/12/17 08:56 73 22 08/12/17 08:55 66 19 08/12/17 08:55 66 19 108/68 100 08/12/17 08:50 73 19 102/64 100 08/12/17 08:50 75 19 08/12/17 08:45 70 18 98/62 100 08/12/17 08:45 70 18 08/12/17 08:41 104/65 08/12/17 08:40 75 25 08/12/17 08:40 75 25 100 08/12/17 08:35 79 19 111/71 100 08/12/17 08:35 77 19 08/12/17 08:35 36.4 78 16 111/71 98 Oxymask 10 08/12/17 05:48 37 72 20 125/78 97 Room Air Notes Mental Status: alert / awake / arousable, participated in evaluation Pt Amnestic to Procedure: Yes Nausea / Vomiting: adequately controlled Pain: adequately controlled Airway Patency, RR, SpO2: stable & adequate BP & HR: stable & adequate Hydration State: stable & adequate Anesthetic Complications: no major complications apparent
[2017-08-12] MEDS ORDERED: COUGH DROP (SUGAR FREE) LOZ 24 LOZ/1 BOX LOZ ONE (11:15)
[2017-08-12] MEDS ORDERED: NURSING DECISION MEDICATION ORDER SCH (11:15)
[2017-08-12] MEDS ORDERED: COUGH DROP (SUGAR FREE) LOZ 24 LOZ/1 BOX LOZ PRN (12:00)
[2017-08-12] MEDS: FERROUS GLUCONATE 324 MG TAB PO SCH ×2 (12:58→17:49)
[2017-08-12] MEDS: KETOROLAC TROMETHAMINE 30 MG/ML VIAL IV. SCH ×3 (12:59→23:14)
[2017-08-12] MEDS: ACETAMINOPHEN 500 MG TAB PO SCH ×2 (12:59→20:54)
[2017-08-12] MEDS: D5W AND 1/2NSS + 20MEQ KCL 1,000 ML IV SCH ×2 (13:00→20:55)
[2017-08-12] MEDS: PANTOprazole SOD 40 MG TAB PO SCH (13:00)
[2017-08-12] MEDS: CEFAZOLIN IV 2,000 MG in SYRINGE 5 ML IV SCH ×2 (15:14→23:14)
--- NOTE | 2017-08-12 15:21 | PROGRESS NOTE ---
DATE: 08/12/2017 SUBJECTIVE: A 47-year-old gentleman postop from a right hip replacement. He is doing pretty well. His hip is sore but the pain is manageable. Denies any chest pain or shortness of breath. Not feeling dizzy or lightheaded. OBJECTIVE: VITAL SIGNS: Temperature is 36.6. Vital signs stable. PHYSICAL EXAMINATION: GENERAL: Reveals a pleasant, middle-aged male. He is lying in bed, looks pretty comfortable. I had to wake him when I went in the room this afternoon. LUNGS: Clear to auscultation. HEART: Has a regular rate and rhythm. ABDOMEN: Soft, nontender, nondistended. EXTREMITIES: Grossly neurovascularly intact except as follows: Examination of the right hip and leg reveals leg lengths to be equal. Hip is located. Dressing is clean, dry and intact. Thigh is soft and supple. He is neurologically intact. He can dorsiflex and plantarflex his foot appropriately. X-RAYS: X-rays of the right hip from recovery room were reviewed. It shows right uncemented total hip arthroplasty. Components looked to be in good position. No signs of problems. ASSESSMENT: A 47-year-old gentleman postop from a right hip replacement, doing pretty well. Pain seems to be controlled. His hip is located. He is neurologically intact. PLAN: 1. DVT prophylaxis including thigh-high TEDs, SCDs, and aspirin twice a day. 2. PT/OT. Weightbearing as tolerated. Right total hip protocol. 3. IV antibiotics x24 hours. 4. Disposition: He is planning to be discharged to home. He has help from family.
[2017-08-12] MEDS ORDERED: TRANEXAMIC ACID INJ 1,000 MG in SODIUM CHLORIDE 0.9% 100ML 100 ML IV ONE (15:30)
[2017-08-12] MEDS: BuPROPion XL 150 MG TABCR PO SCH (20:53)
[2017-08-12] MEDS: ASPIRIN 325 MG ECTAB PO SCH (20:54)
[2017-08-12] MEDS: SENNA 8.6 MG TAB PO SCH (20:54)
[2017-08-13 03:35] VITALS: BP 98/63; PULSE 81; TEMP 37; O2SAT 91
[2017-08-13] MEDS: D5W AND 1/2NSS + 20MEQ KCL 1,000 ML IV SCH (05:01)
[2017-08-13] MEDS: ACETAMINOPHEN 500 MG TAB PO SCH ×3 (05:28→21:47)
[2017-08-13] MEDS: KETOROLAC TROMETHAMINE 30 MG/ML VIAL IV. SCH ×4 (05:28→23:47)
[2017-08-13 06:52] LABS: BASO % 0.1 %; BASO ABS # 0.01 K/uL (0-0.2); EOS % 2.7 %; EOS ABS # 0.22 K/uL (0-0.5); HEMATOCRIT 33.7 % (42-52); HEMOGLOBIN 11.1 g/dL (14.0-18.0); IG# 0.03 K/uL (0.00-0.02); LYMPH % 11.6 %; LYMPH ABS # 0.94 K/uL (1.2-3.4); MEAN CELL VOLUME 84.9 fL (80-100); MEAN CORPUSCULAR HGB CONC 32.9 g/dl (32-36); MONO % 13.2 %; MONO ABS # 1.07 K/uL (0.11-0.59); NEUT ABS # 5.86 K/uL (1.4-6.5); PLATELET COUNT 145 K/uL (130-400); RED CELL DISTRIBUTION WIDTH CV 14.1 % (11.5-14.5); RED CELL DISTRIBUTION WIDTH SD 44.1 fL (36.4-46.3); WHITE BLOOD COUNT 8.13 K/uL (4.8-10.8)
[2017-08-13] MEDS ORDERED: ASPEC325 PO (07:01)
[2017-08-13] MEDS ORDERED: RXC5 PO (07:01)
[2017-08-13] MEDS ORDERED: ACET-24 PO (07:01)
--- NOTE | 2017-08-13 07:03 | Discharge Instructions ---
Discharge Instructions Date of Service Aug 13, 2017. Admission Reason for Admission: Right Hip Degenerative Joint Disease Discharge Discharge Diagnosis / Problem: Right Hip Replacement Discharge Goals Goal(s): Decrease discomfort, Improve function, Increase independence, Improve disease control, Therapeutic intervention Activity Recommendations Activity Limitations: per Instructions/Follow-up section (Total Hip Precautions ) Weightbearing Status: Right weightbearing . Instructions / Follow-Up Instructions / Follow-Up ACTIVITY RECOMMENDATIONS: Physical Therapy: * Aggressive physical therapy is not usually needed. You will learn to take care of yourself safely and walk. * Follow the "Hip Precautions Instructions." * In some cases, the older adult social work specialist at the hospital will arrange to have a therapist come to your house for the first couple of weeks to help you learn these skills. * You need to practice on your own or with the help of a family member as needed. * When you learn these skills, most of the therapy can be done on your own. Home Exercise: * You were shown a series of exercises in the hospital. Do these exercises three to four times each day including the exercises you were shown in physical therapy. Walking: * Get up and walk several times each day. For the first four weeks, try not to stand or walk for more than one hour at a time. If you do stand or walk for more than one hour, you will not hurt anything, but your leg will likely swell. * As you feel comfortable, you may change from the walker or crutches to a cane and then to independent walking. MEDICATIONS: New Medicine: * You will likely be taking one or more of these medicines: 1. Oxycodone - Take, as directed, when you need it, every four to six hours to control your pain. 2. Aspirin - Thins your blood to lessen the chance of forming a blood clot. * The most common side effects of pain medicine and iron are nausea and constipation. If nausea or constipation is too much of a problem or if you have any questions about your new medicines or doses, call [facility] at [phone]. We will try to help you manage these issues. VERY IMPORTANT TO READ AND REVIEW" Pain: * The immediate post-operative period after hip replacement surgery is often quite painful. * You are given a prescription for pain medicine. You should take it, as directed, when you need it, especially before physical therapy and before going to bed. Pain that interferes with sleep is very common and can last several months. * You will likely need pain medicine for the first two to four weeks. It will not stop all of the pain. The pain will lessen and as you feel better, you may change to milder pain medicine such as Tylenol. * The most common side effects of pain medicine are nausea and constipation, so don't take more than you need. SPECIAL CARE INSTRUCTIONS: TEDs/Elastic Stockings: * The white elastic stockings help limit swelling and prevent blood clots from forming in your legs. The more you wear them, the more they work. * Wear them for six weeks. Prevention of Infection: * Take antibiotics one hour before any dental cleaning, dental work, urological procedure, gastrointestinal procedure or any invasive surgery in order to prevent your new joint from getting infected. * You may get the antibiotics from the doctor performing the procedure or you may call our office at before and we will call in a prescription to the pharmacy of your choice. Things to Watch For: * Drainage from the incision site that occurs more than one week after your surgery. * Severely increased leg pain or swelling. * Increased redness at the incision site. * Fever above 102 degrees Fahrenheit. * Unusual chest pain or shortness of breath. * Unusual pain or burning with urination. Call [facility] at with any of the above problems or if you have any questions about your medicines or recovery. FOLLOW UP VISIT: Make an appointment to see your doctor for approximately two weeks after surgery for a progress check and staple removal by calling the office at . Current Hospital Diet Patient's current hospital diet: Regular Diet Discharge Diet Recommended Diet: Regular Diet Procedures Procedures Performed: Right Total Hip Arthroplasty Uncemented Pending Studies Studies pending at discharge: no Medical Emergencies . Who to Call and When: Medical Emergencies: If at any time you feel your situation is an emergency, please call [phone] immediately. . Non-Emergent Contact Non-Emergency issues call your: Surgeon . "Provider Documentation" section prepared by Hao Vasquez. . VTE Core Measure Inpt VTE Proph given/why not?: Other Anticoagulation, T.E.D. Stockings, SCD's
[2017-08-13 07:29] LABS: CALCIUM 7.9 mg/dl (8.5-10.1); CREATININE 0.94 mg/dl (0.60-1.40); POTASSIUM 4.4 mmol/L (3.5-5.1)
[2017-08-13 07:58] VITALS: BP 124/70; PULSE 70; TEMP 36.8; O2SAT 94
[2017-08-13] MEDS: TAPENTADOL ER 50 MG TABCR PO SCH ×2 (09:00→20:40)
[2017-08-13 09:32] VITALS: O2SAT 94
--- NOTE | 2017-08-13 09:43 | PROGRESS NOTE ---
DATE: 08/13/2017 SUBJECTIVE: A 47-year-old gentleman postop day #1 from a right hip replacement. He is doing well. He had a bit more pain yesterday, but doing better this morning. No chest pain or shortness of breath. Not feeling dizzy or lightheaded. OBJECTIVE: VITAL SIGNS: Temperature 36.8. Vital signs stable. GENERAL: Physical examination reveals a healthy, pleasant, middle-aged male. He is sitting up in bed and talking to a friend. Looks comfortable. EXTREMITIES: Examination of right hip and leg reveals the dressing to be clean, dry and intact. Leg lengths are equal. Hip is located. He can dorsiflex and plantarflex his foot appropriately. His thigh is soft and supple. LABORATORY DATA: Hemoglobin 11.1 and hematocrit 33.7. Electrolytes are stable. ASSESSMENT: A 47-year-old gentleman postop day #1 from a right total hip replacement, doing pretty well. Pain is controlled. Hip is located. He is neurologically intact. PLAN: 1. DVT prophylaxis including thigh-high TEDs, SCDs, and aspirin twice a day. 2. PT/OT. Weightbear as tolerated. Right total hip protocol. 3. Pain control. Doing well with current pain regimen. 4. Disposition: He is planning to be discharged to home once medically stable.
[2017-08-13] MEDS: PANTOprazole SOD 40 MG TAB PO SCH (09:50)
[2017-08-13] MEDS: ASPIRIN 325 MG ECTAB PO SCH ×2 (09:50→20:39)
[2017-08-13] MEDS: FERROUS GLUCONATE 324 MG TAB PO SCH ×3 (09:50→16:56)
[2017-08-13] MEDS: FLUOXETINE HCL 20 MG CAP PO SCH (09:50)
[2017-08-13] MEDS: MULTIVITAMIN TAB PO SCH (09:50)
[2017-08-13] MEDS: DOCUSATE SODIUM 100 MG CAP PO SCH ×2 (09:51→20:39)
[2017-08-13 11:51] VITALS: BP 122/64; PULSE 72; TEMP 36.6; O2SAT 97
[2017-08-13 15:35] VITALS: BP 110/71; PULSE 80; TEMP 37.3; O2SAT 94
[2017-08-13] MEDS: BuPROPion XL 150 MG TABCR PO SCH (20:39)
[2017-08-13] MEDS: SENNA 8.6 MG TAB PO SCH (20:40)
[2017-08-13 23:11] VITALS: BP 105/68; PULSE 84; TEMP 36.8; O2SAT 96
[2017-08-14] MEDS: ACETAMINOPHEN 500 MG TAB PO SCH ×2 (05:27→13:14)
[2017-08-14] MEDS: KETOROLAC TROMETHAMINE 30 MG/ML VIAL IV. SCH (05:28)
[2017-08-14 06:13] VITALS: BP 109/70; PULSE 81; TEMP 36.6; O2SAT 93
--- NOTE | 2017-08-14 07:56 | PROGRESS NOTE ---
DATE: 08/14/2017 SUBJECTIVE: A 47-year-old gentleman postop day 2 from right total hip replacement. He is doing well. Pain is controlled. No shortness of breath. Not feeling dizzy or lightheaded. OBJECTIVE: VITAL SIGNS: Temperature 36.6. Vital signs stable. EXTREMITIES: Examination of the right hip and leg reveals the patient is sitting up in his bedside chair and looks pretty comfortable. Dressing is clean, dry and intact. Hip is located. Thigh is soft and supple. He is neurologically intact. ASSESSMENT: A 47-year-old gentleman postop day 2 from right total hip replacement, doing well. Pain is controlled. Hip is located. He is neurologically intact. PLAN: 1. DVT prophylaxis including thigh-high TEDs, SCDs, and aspirin twice a day. 2. PT/OT. Weight bear as tolerated. Right total hip protocol. 3. Pain control, doing pretty well with current pain regimen. 4. Disposition: Plan to discharge to home after therapy today.
[2017-08-14] MEDS: TAPENTADOL ER 50 MG TABCR PO SCH (09:00)
[2017-08-14] MEDS: FLUOXETINE HCL 20 MG CAP PO SCH (09:23)
[2017-08-14] MEDS: MULTIVITAMIN TAB PO SCH (09:23)
[2017-08-14] MEDS: DOCUSATE SODIUM 100 MG CAP PO SCH (09:23)
[2017-08-14] MEDS: PANTOprazole SOD 40 MG TAB PO SCH (09:23)
[2017-08-14] MEDS: ASPIRIN 325 MG ECTAB PO SCH (09:23)
[2017-08-14] MEDS: FERROUS GLUCONATE 324 MG TAB PO SCH ×2 (09:23→13:14)
[2017-08-14 10:39] VITALS: BP 109/70; PULSE 81; TEMP 36.6; O2SAT 93
[2017-08-26] MEDS ORDERED: METOCLOPRAMIDE HCL 10 MG TAB PO SCH (06:00)
[2017-08-26] MEDS ORDERED: LACTATED RINGER'S 1000ML 500 ML IV SCH (06:00)
[2017-08-26] MEDS ORDERED: LACTATED RINGER'S 1000ML IV SCH (06:00)
[2017-08-26] MEDS ORDERED: CEFAZOLIN 2000MG IV PUSH 10 ML IV SCH (06:00)
[2017-08-26] MEDS ORDERED: SCOPOLAMINE 1.5 MG TDSY TD SCH (06:00)
[2017-08-26] MEDS ORDERED: ACETAMINOPHEN 500 MG TAB PO SCH (06:00)
[2017-08-26] MEDS ORDERED: GABAPENTIN 300 MG CAP PO SCH (06:00)
[2017-08-26] MEDS ORDERED: TRANEXAMIC ACID INJ 1,000 MG in SYRINGE 0 ML IV SCH (06:00)
[2017-08-26] MEDS ORDERED: FAMOTIDINE 20 MG TAB PO SCH (06:00)
[2017-08-26] MEDS ORDERED: LACTATED RINGER'S 1000ML 1,000 ML IV SCH (06:00)
[2017-08-26] MEDS ORDERED: CHECK SCOPOLAMINE PATCH PLACEMENT SCH (16:00)
== END 2017-08-14 13:40 | disposition home health service (06) | DRG 470 ==
LOC: C.ACU 04:58 → C.3E 08:39 → ENRESERV 09:12
PROVIDERS: ADMIT Orthopaedic Surgery Sports Medicine; ATTEND Orthopaedic Surgery Sports Medicine
PROC: 0SR904A Replacement of Right Hip Joint with Ceramic on Polyethylene Synthetic Substitute, Uncemented, Open Approach (ICD-10-PCS; principal; 2017-08-12 07:00)
DX: M16.11 Unilateral primary osteoarthritis, right hip (principal); G47.30 Sleep apnea, unspecified; Z88.0 Allergy status to penicillin